=== PATIENT | female | born 1985 | race African-American/Black ===

== ENCOUNTER 2018-06-07 15:09 | Emergency (ER) | payer SELFPAY ==
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
[2018-06-07 16:50] LABS: CHLORIDE,CL 103 mmol/L (98-107); SODIUM,NA 143 mmol/L (136-145)
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
== END 2018-06-07 18:05 | disposition home or self-care (01) ==
LOC: MW.ED 15:09
DX: S32.039A Unspecified fracture of third lumbar vertebra, initial encounter for closed fracture (principal); F17.210 Nicotine dependence, cigarettes, uncomplicated; R45.6 Violent behavior; Y04.0XXA Assault by unarmed brawl or fight, initial encounter
CPT/HCPCS: 36415; 72100; 72100-26; 80053; 81001; 81025; 85025; 99283; 99284-25

== ENCOUNTER 2018-12-30 09:32 | Emergency (ER) | payer OTHER ==
--- NOTE | 2018-12-30 09:42 | EDM.PDOC ---
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 She states she is 2 weeks late on her period and has never missed a period in her whole life. Patient has had some and vomiting is tolerating fluids. Patient has taken several home tests that have all been negative. She denies any fevers, chills or diarrhea. Review of systems: As per history of present illness and below otherwise all systems reviewed and negative. Past medical history: As per history of present illness and as reviewed below otherwise noncontributory. Surgical history: As per history of present illness and as reviewed below otherwise noncontributory. Social history: No reported history of drug or alcohol abuse. Family history: As per history of present illness and as reviewed below otherwise noncontributory. Physical exam: General: Well developed, well nourished in NAD HEENT: Atraumatic, normocephalic, pupils reactive, negative for conjunctival pallor or scleral icterus, mucous membranes moist, throat clear, neck supple, nontender, trachea midline. Lungs: Clear to auscultation, breath sounds equal bilaterally, chest nontender. Heart: S1S2, regular, negative for clicks, rubs, or JVD. Abdomen: NABS, Soft, nondistended, nontender. Negative for masses or hepatosplenomegaly. Negative for costovertebral tenderness. Pelvis: Stable nontender. Genitourinary: Deferred. Rectal: Deferred. Extremities: Atraumatic, negative for cords or calf pain. Neurovascular unremarkable. Neuro: Awake, alert, oriented. Cranial nerves II through XII unremarkable. Cerebellum unremarkable. Motor and sensory unremarkable throughout. Exam nonfocal. Skin:warm and dry Diagnostics: CBC, chemistry, lipase, UA, hCG Therapeutics: Nonenone ED Course: Stable Impression: UTI Prescriptions: Bactrim DS Plan: Take meds as directed, follow up with your primary care physician, return to ER if symptoms worsen or change. Definitive disposition and diagnosis as appropriate pending reevaluation and review of above. Abdominal Pain Score (Numeric/FACES): 4 - Related Data Allergies Allergy/AdvReac Type Severity Reaction Status Date / Time No Known Allergies Allergy Verified 12/30/18 09:41 Home Meds: Home Meds Sulfamethoxazole/Trimethoprim [Bactrim Ds Tablet] 1 each PO BID #20 tablet 12/30 [Rx] Past Medical History - Past Health History Medical/Surgical History: Denies Medical/Surgical History - Infectious Disease History Infectious Disease History: Reports: Chicken Pox Social & Family History - Family History Family Medical History: Noncontributory - Caffeine Use Caffeine Use: Reports: Soda ED ROS GENERAL - Review of Systems Review Of Systems: See Below ED EXAM, RENAL/ - Physical Exam Exam: See Below Course - Vital Signs Last Recorded V/S: Last Vital Signs Temp 97.1 F 12/30/18 09:41 Pulse 90 12/30/18 09:41 Resp 15 12/30/18 09:41 BP 136/96 H 12/30/18 09:41 Pulse Ox 97 12/30/18 09:41 - Orders/Labs/Meds Labs: Laboratory Tests 12/30/18 12/30/18 12/30/18 Range/Units 09:30 09:30 09:55 WBC 6.08 (4.0-11.0) K/uL RBC 4.42 (4.30-5.90) M/uL Hgb 14.3 (12.0-16.0) g/dL Hct 43.2 (36.0-46.0) % MCV 97.7 (80.0-98.0) fL MCH 32.4 H (27.0-32.0) pg MCHC 33.1 (31.0-37.0) g/dL RDW Std Deviation 47.7 (28.0-62.0) fl RDW Coeff of Efraín 13 (11.0-15.0) % Plt Count 186 (150-400) K/uL MPV 11.10 (7.40-12.00) fL Neut % (Auto) 64.1 (48.0-80.0) % Lymph % (Auto) 26.8 (16.0-40.0) % [place] % (Auto) 7.9 (0.0-15.0) % Eos % (Auto) 0.7 (0.0-7.0) % Baso % (Auto) 0.5 (0.0-1.5) % Neut # (Auto) 3.9 (1.4-5.7) K/uL Lymph # (Auto) 1.6 (0.6-2.4) K/uL [place] # (Auto) 0.5 (0.0-0.8) K/uL Eos # (Auto) 0.0 (0.0-0.7) K/uL Baso # (Auto) 0.0 (0.0-0.1) K/uL Nucleated RBC % 0.0 /100WBC Nucleated RBCs # 0 K/uL Sodium (136-145) mmol/L Potassium (3.5-5.1) mmol/L Chloride (98-107) mmol/L Carbon Dioxide (21.0-32.0) mmol/L BUN (7.0-18.0) mg/dL Creatinine (0.6-1.0) mg/dL Est Cr Clr Drug Dosing mL/min Estimated GFR (MDRD) ml/min Glucose (74-106) mg/dL Calcium (8.5-10.1) mg/dL Total Bilirubin (0.2-1.0) mg/dL AST (15-37) IU/L ALT (14-63) IU/L Alkaline Phosphatase (46-116) U/L Total Protein (6.4-8.2) g/dL Albumin (3.4-5.0) g/dL Globulin (2.6-4.0) g/dL Albumin/Globulin Ratio (0.9-1.6) Lipase (73-393) U/L Urine Color YELLOW Urine Appearance SLT CLOUDY Urine pH 7.5 (5.0-8.0) Ur Specific [place] 1.015 (1.001-1.035) Urine Protein NEGATIVE (NEGATIVE) mg/dL Urine Glucose (UA) NEGATIVE (NEGATIVE) mg/dL Urine Ketones NEGATIVE (NEGATIVE) mg/dL Urine Occult Blood NEGATIVE (NEGATIVE) Urine Nitrite NEGATIVE (NEGATIVE) Urine Bilirubin NEGATIVE (NEGATIVE) Urine Urobilinogen 0.2 (<2.0) EU/dL Ur Leukocyte Esterase SMALL H (NEGATIVE) Urine RBC 0-1 (0-2/HPF) Urine WBC 10-15 (0-5/HPF) Ur Epithelial Cells MODERATE (NONE-FEW) Urine Bacteria FEW (NEGATIVE) Hyaline Casts 0-1 (0-2/LPF) Urine Mucus MODERATE (NONE-MOD) Urine HCG, Qual NEGATIVE (NEGATIVE) 12/30/18 Range/Units 09:55 WBC (4.0-11.0) K/uL RBC (4.30-5.90) M/uL Hgb (12.0-16.0) g/dL Hct (36.0-46.0) % MCV (80.0-98.0) fL MCH (27.0-32.0) pg MCHC (31.0-37.0) g/dL RDW Std Deviation (28.0-62.0) fl RDW Coeff of Efraín (11.0-15.0) % Plt Count (150-400) K/uL MPV (7.40-12.00) fL Neut % (Auto) (48.0-80.0) % Lymph % (Auto) (16.0-40.0) % [place] % (Auto) (0.0-15.0) % Eos % (Auto) (0.0-7.0) % Baso % (Auto) (0.0-1.5) % Neut # (Auto) (1.4-5.7) K/uL Lymph # (Auto) (0.6-2.4) K/uL [place] # (Auto) (0.0-0.8) K/uL Eos # (Auto) (0.0-0.7) K/uL Baso # (Auto) (0.0-0.1) K/uL Nucleated RBC % /100WBC Nucleated RBCs # K/uL Sodium 144 (136-145) mmol/L Potassium 4.0 (3.5-5.1) mmol/L Chloride 108 H (98-107) mmol/L Carbon Dioxide 23.8 (21.0-32.0) mmol/L BUN 6 L (7.0-18.0) mg/dL Creatinine 0.8 (0.6-1.0) mg/dL Est Cr Clr Drug Dosing 92.76 mL/min Estimated GFR (MDRD) > 60.0 ml/min Glucose 75 (74-106) mg/dL Calcium 8.5 (8.5-10.1) mg/dL Total Bilirubin 0.5 (0.2-1.0) mg/dL AST 12 L (15-37) IU/L ALT 21 (14-63) IU/L Alkaline Phosphatase 43 L (46-116) U/L Total Protein 7.3 (6.4-8.2) g/dL Albumin 3.9 (3.4-5.0) g/dL Globulin 3.4 (2.6-4.0) g/dL Albumin/Globulin Ratio 1.1 (0.9-1.6) Lipase 106 (73-393) U/L Urine Color Urine Appearance Urine pH (5.0-8.0) Ur Specific [place] (1.001-1.035) Urine Protein (NEGATIVE) mg/dL Urine Glucose (UA) (NEGATIVE) mg/dL Urine Ketones (NEGATIVE) mg/dL Urine Occult Blood (NEGATIVE) Urine Nitrite (NEGATIVE) Urine Bilirubin (NEGATIVE) Urine Urobilinogen (<2.0) EU/dL Ur Leukocyte Esterase (NEGATIVE) Urine RBC (0-2/HPF) Urine WBC (0-5/HPF) Ur Epithelial Cells (NONE-FEW) Urine Bacteria (NEGATIVE) Hyaline Casts (0-2/LPF) Urine Mucus (NONE-MOD) Urine HCG, Qual (NEGATIVE) Departure - Departure Time of Disposition: 11:07 Disposition: Home, Self-Care 01 Condition: Good Clinical Impression: UTI (urinary tract infection) Qualifiers: Urinary tract infection type: site unspecified Hematuria presence: without hematuria Qualified Code(s): N39.0 - Urinary tract infection, site not specified - Discharge Information *PRESCRIPTION DRUG MONITORING PROGRAM REVIEWED*: Not Applicable *COPY OF PRESCRIPTION DRUG MONITORING REPORT IN PATIENT JAZZMINE: Not Applicable Prescriptions: Sulfamethoxazole/Trimethoprim [Bactrim Ds Tablet] 1 each PO BID #20 tablet Referrals: PCP,None [Primary Care Provider] - Forms: ED Department Discharge Additional Instructions: The following information is given to patients seen in the emergency department who are being discharged to home. This information is to outline your options for follow-up care. We provide all patients seen in our emergency department with a follow-up referral. The need for follow-up, as well as the timing and circumstances, are variable depending upon the specifics of your emergency department visit. If you don't have a primary care physician on staff, we will provide you with a referral. We always advise you to contact your personal physician following an emergency department visit to inform them of the circumstance of the visit and for follow-up with them and/or the need for any referrals to a consulting specialist. The emergency department will also refer you to a specialist when appropriate. This referral assures that you have the opportunity for follow-up care with a specialist. All of these measure are taken in an effort to provide you with optimal care, which includes your follow-up. Under all circumstances we always encourage you to contact your private physician who remains a resource for coordinating your care. When calling for follow-up care, please make the office aware that this follow-up is from your recent emergency room visit. If for any reason you are refused follow-up, please contact the [facility] Emergency Department at and asked to speak to the emergency department charge nurse. Take meds as directed, follow up with your primary care physician, return to ER if symptoms worsen or change. [facility] Primary Care [address] [place] [id number]
[2018-12-30 10:48] LABS: BLOOD UREA NITROGEN,BUN 6 mg/dL (7.0-18.0); CARBON DIOXIDE,CO2 23.8 mmol/L (21.0-32.0); CHLORIDE,CL 108 mmol/L (98-107); GLUCOSE RANDOM 75 mg/dL (74-106); LIPASE 106 U/L (73-393); SODIUM,NA 144 mmol/L (136-145)
== END 2018-12-30 11:35 | disposition home or self-care (01) ==
LOC: MW.ED 09:32
DX: N39.0 Urinary tract infection, site not specified (principal)
CPT/HCPCS: 36415; 80053; 81001; 81025; 83690; 85025; 99283; 99284

== ENCOUNTER 2019-03-01 17:09 | Observation (INO) | payer OTHER ==
[2019-03-01] MEDS ORDERED: Ondansetron 4 MG/2 ML SDV IVPUSH ONE (19:03)
[2019-03-01] MEDS ORDERED: Ketorolac 30 MG/ML SDV IVPUSH ONE (19:03)
[2019-03-01] MEDS ORDERED: Sodium Chloride 0.9% 1,000 ML IV ONE (19:03)
[2019-03-01 19:52] LABS: BLOOD UREA NITROGEN,BUN 12 mg/dL (7.0-18.0); CARBON DIOXIDE,CO2 26.5 mmol/L (21.0-32.0); CHLORIDE,CL 100 mmol/L (98-107); GLUCOSE RANDOM 81 mg/dL (74-106); LIPASE 186 U/L (73-393); SODIUM,NA 138 mmol/L (136-145)
[2019-03-01] MEDS ORDERED: Iopamidol 755 Mg/ML 100 ML Bottle IVPUSH STA (19:56)
--- NOTE | 2019-03-01 20:37 | CT ---
Indication: Right lower quadrant abdominal pain Technique: Contrast enhanced axial CT imaging through the abdomen and pelvis. 100 mL Isovue 370 contrast agent was administered intravenously. Sagittal and coronal reconstructions are provided. Comparison: None Findings: There is a multiloculated cystic lesion to the right of and posterior to the uterus measuring up to 11.4 x 6.0 x 6.2 cm, likely relating to the right ovary. The left ovary is mildly enlarged, measuring up to 6 cm craniocaudally, with an adjacent elongated cystic focus suggesting hydrosalpinx. There is mild inflammatory stranding in the pelvis. The uterus is unremarkable. There is no significant abnormality of the liver, gallbladder, spleen, pancreas, adrenal glands, and kidneys. The portal veins pain. There is normal caliber of the abdominal aorta. There is no abdominal lymphadenopathy. The stomach and duodenum are unremarkable. There are no abnormally dilated small bowel loops. The appendix is noninflamed. There is no colonic wall thickening. The visualized osseous structures are unremarkable. The included lung bases are clear. Impression: 1. Multiloculated right adnexal cystic lesion measuring up to 11 cm and mild pelvic inflammatory strandy. Differential considerations hydrosalpinx with pelvic abscess, multiloculated ovarian neoplasm, or less likely ovarian torsion. 2. Mild enlargement of the left ovary with adjacent prominent tubular structure suggesting hydrosalpinx. 3. Further evaluation is recommended with pelvic ultrasound. Please note that all CT scans at this facility use dose modulation, iterative reconstruction, and/or weight-based dosing when appropriate to reduce radiation dose to as low as reasonably achievable. Dictated by Maral Cook MD @ Mar 01 2019 8:23PM Signed by Dr. Maral Cook @ Mar 01 2019 8:36PM
[2019-03-01] MEDS ORDERED: Morphine 2 MG/ML Syringe IVPUSH ONE (20:47)
--- NOTE | 2019-03-01 21:23 | EDM.PDOC ---
<Chris Ballard - Last Filed: 03/02/19 00:34> ED HPI GENERAL MEDICAL PROBLEM - General Chief Complaint: Abdominal Pain Stated Complaint: ABDOMINAL PAIN Time Seen by Provider: 03/01/19 18:58 - Related Data Allergies Allergy/AdvReac Type Severity Reaction Status Date / Time No Known Allergies Allergy Verified 03/01/19 17:59 Home Meds: Home Meds Sulfamethoxazole/Trimethoprim [Bactrim Ds Tablet] 1 each PO BID #20 tablet 12/30 [Rx] ED ROS GENERAL - Review of Systems Review Of Systems: See Below ED EXAM, GENERAL - Physical Exam Exam: See Below Course - Vital Signs Last Recorded V/S: Last Vital Signs Temp 98.1 F 03/02/19 07:33 Pulse 67 03/02/19 07:33 Resp 17 03/02/19 07:33 BP 116/72 03/02/19 07:33 Pulse Ox 98 03/02/19 07:33 - Orders/Labs/Meds Orders: Active Orders 24 hr Category Date Time Status CHLAMYDIA AND GONORRHEA BY TMA Stat Lab 03/01/19 22:08 Received CULTURE GENITAL [RM] Stat Lab 03/01/19 22:05 Received Medication Orders Hydromorphone HCl (Dilaudid) 1 mg IVPUSH Q3H PRN PRN Reason: Pain (severe 7-10) Last Admin: 03/02/19 05:37 Dose: 1 mg Metronidazole (Metronidazole) 500 mg PO Q12HR DEN Last Admin: 03/02/19 08:24 Dose: 500 mg Morphine Sulfate (Morphine) 2 mg IVPUSH Q4H PRN PRN Reason: Pain (moderate 4-6) Last Admin: 03/02/19 08:13 Dose: 2 mg Ondansetron HCl (Zofran) 4 mg IVPUSH Q4H PRN PRN Reason: Nausea Last Admin: 03/02/19 08:11 Dose: 4 mg Labs: Laboratory Tests 03/01/19 03/01/19 03/01/19 Range/Units 18:01 18:34 19:24 WBC 7.94 (4.0-11.0) K/uL RBC 4.43 (4.30-5.90) M/uL Hgb 14.4 (12.0-16.0) g/dL Hct 43.2 (36.0-46.0) % MCV 97.5 (80.0-98.0) fL MCH 32.5 H (27.0-32.0) pg MCHC 33.3 (31.0-37.0) g/dL RDW Std Deviation 47.9 (28.0-62.0) fl RDW Coeff of Efraín 13 (11.0-15.0) % Plt Count 258 (150-400) K/uL MPV 10.30 (7.40-12.00) fL Add Manual Diff YES Neutrophils % (Manual) 69 (48.0-80.0) % Lymphocytes % (Manual) 27 (16.0-40.0) % Monocytes % (Manual) 4 (0.0-15.0) % Nucleated RBC % 0.0 /100WBC Absolute Seg Neuts 5.5 (1.4-5.7) Lymphocytes # (Manual) 2.1 (0.6-2.4) Monocytes # (Manual) 0.3 (0.0-0.8) Nucleated RBCs # 0 K/uL Sodium (136-145) mmol/L Potassium (3.5-5.1) mmol/L Chloride (98-107) mmol/L Carbon Dioxide (21.0-32.0) mmol/L BUN (7.0-18.0) mg/dL Creatinine (0.6-1.0) mg/dL Est Cr Clr Drug Dosing mL/min Estimated GFR (MDRD) ml/min Glucose (74-106) mg/dL Calcium (8.5-10.1) mg/dL Total Bilirubin (0.2-1.0) mg/dL AST (15-37) IU/L ALT (14-63) IU/L Alkaline Phosphatase (46-116) U/L Total Protein (6.4-8.2) g/dL Albumin (3.4-5.0) g/dL Globulin (2.6-4.0) g/dL Albumin/Globulin Ratio (0.9-1.6) Lipase (73-393) U/L CA 125 Antigen (0.0-35.0) U/ML Urine Color YELLOW Urine Appearance HAZY Urine pH 8.0 (5.0-8.0) Ur Specific [place] 1.020 (1.001-1.035) Urine Protein NEGATIVE (NEGATIVE) mg/dL Urine Glucose (UA) NEGATIVE (NEGATIVE) mg/dL Urine Ketones NEGATIVE (NEGATIVE) mg/dL Urine Occult Blood NEGATIVE (NEGATIVE) Urine Nitrite NEGATIVE (NEGATIVE) Urine Bilirubin NEGATIVE (NEGATIVE) Urine Urobilinogen 1.0 (<2.0) EU/dL Ur Leukocyte Esterase NEGATIVE (NEGATIVE) Urine HCG, Qual NEGATIVE (NEGATIVE) Jackelyn species DNA (NEGATIVE) Gardnerella DNA Probe (NEGATIVE) Trichomonas DNA Probe (NEGATIVE) 03/01/19 03/01/19 03/01/19 Range/Units 19:24 19:24 22:05 WBC (4.0-11.0) K/uL RBC (4.30-5.90) M/uL Hgb (12.0-16.0) g/dL Hct (36.0-46.0) % MCV (80.0-98.0) fL MCH (27.0-32.0) pg MCHC (31.0-37.0) g/dL RDW Std Deviation (28.0-62.0) fl RDW Coeff of Efraín (11.0-15.0) % Plt Count (150-400) K/uL MPV (7.40-12.00) fL Add Manual Diff Neutrophils % (Manual) (48.0-80.0) % Lymphocytes % (Manual) (16.0-40.0) % Monocytes % (Manual) (0.0-15.0) % Nucleated RBC % /100WBC Absolute Seg Neuts (1.4-5.7) Lymphocytes # (Manual) (0.6-2.4) Monocytes # (Manual) (0.0-0.8) Nucleated RBCs # K/uL Sodium 138 (136-145) mmol/L Potassium 4.0 (3.5-5.1) mmol/L Chloride 100 (98-107) mmol/L Carbon Dioxide 26.5 (21.0-32.0) mmol/L BUN 12 (7.0-18.0) mg/dL Creatinine 0.8 (0.6-1.0) mg/dL Est Cr Clr Drug Dosing 92.76 mL/min Estimated GFR (MDRD) > 60.0 ml/min Glucose 81 (74-106) mg/dL Calcium 9.2 (8.5-10.1) mg/dL Total Bilirubin 0.3 (0.2-1.0) mg/dL AST 18 (15-37) IU/L ALT 22 (14-63) IU/L Alkaline Phosphatase 71 (46-116) U/L Total Protein 8.8 H (6.4-8.2) g/dL Albumin 3.9 (3.4-5.0) g/dL Globulin 4.9 H (2.6-4.0) g/dL Albumin/Globulin Ratio 0.8 L (0.9-1.6) Lipase 186 (73-393) U/L CA 125 Antigen 452.5 H (0.0-35.0) U/ML Urine Color Urine Appearance Urine pH (5.0-8.0) Ur Specific [place] (1.001-1.035) Urine Protein (NEGATIVE) mg/dL Urine Glucose (UA) (NEGATIVE) mg/dL Urine Ketones (NEGATIVE) mg/dL Urine Occult Blood (NEGATIVE) Urine Nitrite (NEGATIVE) Urine Bilirubin (NEGATIVE) Urine Urobilinogen (<2.0) EU/dL Ur Leukocyte Esterase (NEGATIVE) Urine HCG, Qual (NEGATIVE) Jackelyn species DNA NEGATIVE (NEGATIVE) Gardnerella DNA Probe POSITIVE H (NEGATIVE) Trichomonas DNA Probe NEGATIVE (NEGATIVE) Meds: Medications Generic Name Dose Route Start Last Admin Trade Name Freq PRN Reason Stop Dose Admin Hydromorphone HCl 1 mg 03/02/19 00:52 03/02/19 05:37 Dilaudid IVPUSH 1 mg Q3H PRN Administration Pain (severe 7-10) Metronidazole 500 mg 03/02/19 09:00 03/02/19 08:24 Metronidazole PO 500 mg Q12HR DEN Administration Morphine Sulfate 2 mg 03/02/19 01:00 03/02/19 08:13 Morphine IVPUSH 2 mg Q4H PRN Administration Pain (moderate 4-6) Ondansetron HCl 4 mg 03/02/19 07:49 03/02/19 08:11 Zofran IVPUSH 4 mg Q4H PRN Administration Nausea Discontinued Medications Generic Name Dose Route Start Last Admin Trade Name Freq PRN Reason Stop Dose Admin Hydromorphone HCl 0.5 - 1 mg 03/01/19 23:44 03/02/19 00:46 Dilaudid IVPUSH 1 mg Q1H PRN Administration Pain Hydromorphone HCl Confirm 03/01/19 23:47 03/02/19 07:46 Dilaudid Administered 03/01/19 23:48 Not Given Dose 1 mg .ROUTE .STK-MED ONE Sodium Chloride 1,000 mls @ 999 mls/hr 03/01/19 19:03 03/01/19 19:22 Normal Saline IV 03/01/19 20:03 999 mls/hr BOLUS ONE Administration Iopamidol 100 ml 03/01/19 19:56 03/01/19 20:10 Isovue-370 (76%) IVPUSH 03/01/19 19:57 100 ml ONETIME STA Administration Ketorolac Tromethamine 30 mg 03/01/19 19:03 03/01/19 19:22 Toradol IVPUSH 03/01/19 19:04 30 mg ONETIME ONE Administration Metronidazole 500 mg 03/02/19 00:32 03/02/19 00:46 Metronidazole PO 03/02/19 00:33 500 mg ONETIME ONE Administration Morphine Sulfate 2 mg 03/01/19 20:47 03/01/19 20:54 Morphine IVPUSH 03/01/19 20:48 2 mg ONETIME ONE Administration Ondansetron HCl 4 mg 03/01/19 19:03 03/01/19 19:22 Zofran IVPUSH 03/01/19 19:04 4 mg ONETIME ONE Administration Trazodone HCl 25 mg 03/02/19 02:18 03/02/19 02:38 Trazodone PO 03/02/19 02:19 25 mg ONETIME ONE Administration Trazodone HCl Confirm 03/02/19 02:26 03/02/19 07:46 Trazodone Administered 03/02/19 02:27 Not Given Dose 50 mg .ROUTE .STK-MED ONE - Re-Assessments/Exams Free Text/Narrative Re-Assessment/Exam: 03/02/19 00:35 Emergency Medicine Physician Handoff Note Verbal report from ZAK Cutler at 9 PM, 04/28/2019. Summary: 33-year-old female presents with approximately one week of right lower quadrant pain. CT abdomen pelvis concerning for large mass on right ovary. Transvaginal ultrasound pending. Pelvic exam with CMT. WBC 7.9, HB 14.4, sodium 138, potassium 4.0, total bilirubin 0.3, AST 18, ALT 22 , alkaline phosphatase 71, lipase 186. UA - negative nitrate, negative leukocyte esterase, hCG negative. CT abdomen/pelvis: 1. Multiloculated right adnexal cystic lesion measuring up to 11 cm and mild pelvic inflammatory strandy. Differential considerations hydrosalpinx with pelvic abscess, multiloculated ovarian neoplasm, or less likely ovarian torsion. 2. Mild enlargement of the left ovary with adjacent prominent tubular structure suggesting hydrosalpinx. 3. Further evaluation is recommended with pelvic ultrasound. US TV: Prominent enlargement of the right ovary with multiple anechoic or irregularly- shaped regions within it, measuring 10.6 x 5.3 by 5.3 centimeters. This is worrisome for an ovarian malignancy. Irregularly-shaped left paraovarian mass extending medially and posteriorly from the normal-appearing left ovary, appearing to surround a left hydrosalpinx. The left ovary itself appears to be normal in appearance. Retroverted uterus with a posterior fundal fibroid measuring up to 2.9 centimeters in diameter. No sign of free fluid. Vitals and completed studies were jointly reviewed, these are notable for: Pending: Anticipated disposition: Evaluation: I independently reviewed the prior provider's chart, nursing and triage note(s) , vitals - and when available - labs, EKGs, and imaging studies. Discuss case with Dr. Almaraz, hospitalization for pain control (if unable to obtain adequate pain control in ED) recommended, requested CA 125. This was added on and is pending. Patient given 1 mg hydromorphone, patient with significant ongoing pain, patient requested hospitalization with IMAGE SCIENTIST consultation in the morning. 500 mg Flagyl given for BV. Patient admitted to Dr. Robison. Impression: ovarian mass, bacterial vaginosis. Departure - Departure Time of Disposition: 00:35 Disposition: Admitted As Inpatient 65 Clinical Impression: Ovarian mass - Discharge Information Sepsis Event Note - Focused Exam Date Exam was Performed: 03/02/19 Time Exam was Performed: 00:34 - My Orders Last 24 Hours: My Active Orders 03/01/19 22:05 CULTURE GENITAL [RM] Stat 03/01/19 22:08 CHLAMYDIA AND GONORRHEA BY TMA Stat - Assessment/Plan Last 24 Hours: My Active Orders 03/01/19 22:05 CULTURE GENITAL [RM] Stat 03/01/19 22:08 CHLAMYDIA AND GONORRHEA BY TMA Stat <Gabby,Anna - Last Filed: 03/02/19 10:03> ED HPI GENERAL MEDICAL PROBLEM - General Source of Information: Reports: Patient History Limitations: Reports: No Limitations - History of Present Illness INITIAL COMMENTS - FREE TEXT/NARRATIVE: HISTORY AND PHYSICAL: History of present illness: Patient is a 33-year-old female who presents to the ED today with concern of right lower quadrant pain over the last week. Patient states that the pain feels similar to when she had an ovarian cyst rupture in the past. Patient states that the pain has been dull until today it has worsened and been more sharp on the right lower side. Patient states she has not taken anything for her symptoms. Patient denies fever, chills, chest pain, shortness of breath, or cough. Denies headache, neck stiff ness, change in vision, syncope, or near syncope. Denies nausea, vomiting, diarrhea, constipation, or dysuria. Has not noted any blood in urine or stool. Patient has been eating and drinking appropriately. Review of systems: As per history of present illness and below otherwise all systems reviewed and negative. Past medical history: As per history of present illness and as reviewed below otherwise noncontributory. Surgical history: As per history of present illness and as reviewed below otherwise noncontributory. Social history: See social history for further information Family history: As per history of present illness and as reviewed below otherwise noncontributory. Physical exam: General: Patient is alert, oriented, and in no acute distress. Patient laying comfortably on exam table. HEENT: Atraumatic, normocephalic, pupils equal and reactive bilaterally, negative for conjunctival pallor or scleral icterus, mucous membranes moist, TMs normal bilaterally, throat clear, neck supple, nontender, trachea midline. No drooling or trismus noted. No meningeal signs. No hot potato voice noted. Lungs: Clear to auscultation, breath sounds equal bilaterally, chest nontender. Heart: S1S2, regular rate and rhythm without overt murmur Abdomen: Soft, nondistended. Moderate pain to palpation of the RLQ without guarding. Negative rebound. Negative for masses or hepatosplenomegaly. Negative for costovertebral tenderness. Pelvis: Stable nontender. Genitourinary: External genitalia is grossly unremarkable. There is a moderate amount of white discharge in the vaginal vault. Positive cervical motion tenderness. Uterus is approximately 6 week in size with pain with palpation to the right. Rectal: Deferred. Skin: Intact, warm, dry. No lesions or rashes noted. Extremities: Atraumatic, negative for cords or calf pain. Neurovascular unremarkable. Neuro: Awake, alert, oriented. Cranial nerves II through XII unremarkable. Cerebellum unremarkable. Motor and sensory unremarkable throughout. Exam nonfocal. Notes: Dr. Ballard has assumed care of patient and will follow remaining diagnostics and disposition. See his note for further treatment and disposition. Diagnostics: CBC, CMP, UA, urine hCG, lipase, gonorrhea chlamydia, affirm, vaginal culture, abdominal pelvic CT, transvaginal ultrasound Therapeutics: NS, Toradol, Zofran, Morphine Prescription: Impression: Right sided pelvic pain Plan: Definitive disposition and diagnosis as appropriate pending reevaluation and review of above. right abd Pain Score (Numeric/FACES): 10 Past Medical History - Past Health History Medical/Surgical History: Denies Medical/Surgical History IMAGE SCIENTIST History: Reports: - Infectious Disease History Infectious Disease History: Reports: Chicken Pox Social & Family History - Family History Family Medical History: Noncontributory - Tobacco Use Smoking Status *Q: Current Every Day Smoker Years of Tobacco use: 20 Packs/Tins Daily: 0.5 - Caffeine Use Caffeine Use: Reports: Soda - Recreational Drug Use Recreational Drug Use: No ED ROS GENERAL - Review of Systems Review Of Systems: Comprehensive ROS is negative, except as noted in HPI. ED EXAM, GENERAL - Physical Exam Exam: See Below (see dictation) Sepsis Event Note - Evaluation Sepsis Screening Result: No Definite Risk - Focused Exam Date Exam was Performed: 03/02/19 Time Exam was Performed: 10:00
--- NOTE | 2019-03-01 22:59 | US ---
INDICATION: Ovarian mass on CT and this evening. Right lower quadrant abdominal pain. COMPARISON: CT of the pelvis from today. FINDINGS: Transvaginal ultrasound examination of the female pelvis was performed. The uterus is retroverted and is normal in size. It measures 10.0 x 5.0 x 3.8 cm. There is a posterior fundal fibroid measuring 2.5 x 2.9 x 2.7 centimeters. The endometrial lining is normal in thickness at 4 mm. There is prominent enlargement of the right ovary with multiple anechoic, irregularly-shaped regions within it, measuring 10.6 x 5.3 by 5.3 centimeters. There is relatively little color Doppler flow in or around this mass, although there are some large vessels penetrating into the mass. The findings are nonspecific, and certainly could include ovarian malignancy. The left ovary appears to be normal in size and shape, measuring 1.9 x 2.5 x 1.6 centimeters. There appears to be normal color Doppler flow in the left ovary. There is a mildly hyperechoic mass extending inferiorly and medially from the left ovary, with central tubular fluid, corresponding to the appearance on CT. This appears to be a paraovarian mass surrounding a left hydrosalpinx. There is no sign of free fluid in the pelvis. IMPRESSION: Prominent enlargement of the right ovary with multiple anechoic or irregularly-shaped regions within it, measuring 10.6 x 5.3 by 5.3 centimeters. This is worrisome for an ovarian malignancy. Irregularly-shaped left paraovarian mass extending medially and posteriorly from the normal-appearing left ovary, appearing to surround a left hydrosalpinx. The left ovary itself appears to be normal in appearance. Retroverted uterus with a posterior fundal fibroid measuring up to 2.9 centimeters in diameter. No sign of free fluid. Dictated by Van Forbes MD @ Mar 01 2019 10:46PM Signed by Dr. Van Forbes @ Mar 01 2019 10:57PM
[2019-03-01] MEDS ORDERED: HYDROmorphone 1 MG/ML Syringe ONE (23:47)
[2019-03-01] MEDS: HYDROmorphone 1 MG/ML Syringe IVPUSH PRN (23:51)
[2019-03-02] MEDS ORDERED: metroNIDAZOLE 250 MG Tab PO ONE (00:32)
[2019-03-02] MEDS: HYDROmorphone 1 MG/ML Syringe IVPUSH PRN ×3 (00:46→12:15)
[2019-03-02] MEDS ORDERED: Morphine 2 MG/ML Syringe IVPUSH PRN (01:00)
[2019-03-02] MEDS ORDERED: traZODone 50 MG Tab PO ONE (02:18)
[2019-03-02] MEDS ORDERED: traZODone 50 MG Tab ONE (02:26)
[2019-03-02] MEDS ORDERED: Ondansetron 4 MG/2 ML SDV IVPUSH PRN (07:49)
[2019-03-02] MEDS ORDERED: metroNIDAZOLE 250 MG Tab PO SCH (09:00)
[2019-03-02] MEDS ORDERED: LORazepam 1 MG Tab PO ONE (13:04)
--- NOTE | 2019-03-02 13:44 | PCM.HP.2 ---
H&P History of Present Illness - General Date of Service: 03/02/19 Admit Problem/Dx: Admission Diagnosis/Problem Admission Diagnosis/Problem Ovarian dysfunction Source of Information: Patient History Limitations: Reports: No Limitations - History of Present Illness Initial Comments - Free Text/Narative: Patient is a 33-year-old female presenting with worsening abdominal pain x2 to 3 days. States the pain in her right lower abdomen is similar to her previous history of ovarian cysts (patient endorses not knowing the nature of her ovarian pathology unsure whether it was torsion or infection). ED course: CT abdomen pelvis: Multiloculated cystic lesion in the right posterior to the uterus most likely right ovary left ovary is mildly enlarged. Transvaginal ultrasound: Multiple anechoic irregularly-shaped regions within the right ovary; concerns for ovarian malignancy present. Possibly mass extending inferiorly and medially from left ovary with hydrosalpinx. Bedside; patient endorsing increasing pain; given Dilaudid and morphine. Dr. Almaraz of [employer] was consulted right abd Pain Score (Numeric/FACES): 10 - Related Data Allergies/Adverse Reactions: Allergies Allergy/AdvReac Type Severity Reaction Status Date / Time No Known Allergies Allergy Verified 03/01/19 17:59 Home Medications: Home Meds Hydrocodone/Acetaminophen [[place] 5-325 Tablet] 1 each PO QID 2 Days #10 tablet 03/02/19 [Rx] metroNIDAZOLE 500 mg PO Q12HR tablet 03/02/19 [Rx] Past Medical History - Past Health History Medical/Surgical History: Denies Medical/Surgical History [employer] History: Reports: Psychiatric History: Reports: Anxiety - Infectious Disease History Infectious Disease History: Reports: Chicken Pox Social & Family History - Family History Family Medical History: Noncontributory - Tobacco Use Smoking Status *Q: Current Every Day Smoker Years of Tobacco use: 20 Packs/Tins Daily: 0.5 Second Hand Smoke Exposure: No - Caffeine Use Caffeine Use: Reports: Soda - Recreational Drug Use Recreational Drug Use: No H&P Review of Systems - Review of Systems: Review Of Systems: See Below General: Denies: Fever, Chills, Weakness, Fatigue HEENT: Reports: No Symptoms Pulmonary: Reports: No Symptoms Cardiovascular: Reports: No Symptoms Gastrointestinal: Reports: Abdominal Pain. Denies: Constipation, Diarrhea Genitourinary: Reports: Pain, Discharge. Denies: Dysuria, Frequency, Burning Musculoskeletal: Reports: No Symptoms Skin: Reports: No Symptoms Psychiatric: Reports: Anxiety Neurological: Reports: Headache Exam - Exam Exam: See Below - Vital Signs Vital Signs: Last Vital Signs Temp 98.6 F 03/02/19 11:00 Pulse 71 03/02/19 11:00 Resp 20 03/02/19 11:00 BP 139/96 H 03/02/19 11:00 Pulse Ox 98 03/02/19 11:00 Weight: 160 lb 14.999 oz - Exam General: Alert, Oriented HEENT: EOMI Neck: Supple, Trachea Midline Lungs: Clear to Auscultation, Normal Respiratory Effort Cardiovascular: Regular Rate, Regular Rhythm GI/Abdominal Exam: Soft, Non-Tender (Female) Exam: Other (RLQ and auprapubic tenderness ) Skin: Warm Neuro Extensive - Mental Status: Alert, Oriented x3 Psychiatric: Alert, Anxious - Patient Data Lab Results Last 24 hrs: Laboratory Results - last 24 hr 03/01/19 03/01/19 03/01/19 Range/Units 18:01 18:34 19:24 WBC 7.94 (4.0-11.0) K/uL RBC 4.43 (4.30-5.90) M/uL Hgb 14.4 (12.0-16.0) g/dL Hct 43.2 (36.0-46.0) % MCV 97.5 (80.0-98.0) fL MCH 32.5 H (27.0-32.0) pg MCHC 33.3 (31.0-37.0) g/dL RDW Std Deviation 47.9 (28.0-62.0) fl RDW Coeff of Efraín 13 (11.0-15.0) % Plt Count 258 (150-400) K/uL MPV 10.30 (7.40-12.00) fL Add Manual Diff YES Neutrophils % (Manual) 69 (48.0-80.0) % Lymphocytes % (Manual) 27 (16.0-40.0) % Monocytes % (Manual) 4 (0.0-15.0) % Nucleated RBC % 0.0 /100WBC Absolute Seg Neuts 5.5 (1.4-5.7) Lymphocytes # (Manual) 2.1 (0.6-2.4) Monocytes # (Manual) 0.3 (0.0-0.8) Nucleated RBCs # 0 K/uL Sodium (136-145) mmol/L Potassium (3.5-5.1) mmol/L Chloride (98-107) mmol/L Carbon Dioxide (21.0-32.0) mmol/L BUN (7.0-18.0) mg/dL Creatinine (0.6-1.0) mg/dL Est Cr Clr Drug Dosing mL/min Estimated GFR (MDRD) ml/min Glucose (74-106) mg/dL Calcium (8.5-10.1) mg/dL Total Bilirubin (0.2-1.0) mg/dL AST (15-37) IU/L ALT (14-63) IU/L Alkaline Phosphatase (46-116) U/L Total Protein (6.4-8.2) g/dL Albumin (3.4-5.0) g/dL Globulin (2.6-4.0) g/dL Albumin/Globulin Ratio (0.9-1.6) Lipase (73-393) U/L CA 125 Antigen (0.0-35.0) U/ML Urine Color YELLOW Urine Appearance HAZY Urine pH 8.0 (5.0-8.0) Ur Specific [place] 1.020 (1.001-1.035) Urine Protein NEGATIVE (NEGATIVE) mg/dL Urine Glucose (UA) NEGATIVE (NEGATIVE) mg/dL Urine Ketones NEGATIVE (NEGATIVE) mg/dL Urine Occult Blood NEGATIVE (NEGATIVE) Urine Nitrite NEGATIVE (NEGATIVE) Urine Bilirubin NEGATIVE (NEGATIVE) Urine Urobilinogen 1.0 (<2.0) EU/dL Ur Leukocyte Esterase NEGATIVE (NEGATIVE) Urine HCG, Qual NEGATIVE (NEGATIVE) Jackelyn species DNA (NEGATIVE) Gardnerella DNA Probe (NEGATIVE) Trichomonas DNA Probe (NEGATIVE) 03/01/19 03/01/19 03/01/19 Range/Units 19:24 19:24 22:05 WBC (4.0-11.0) K/uL RBC (4.30-5.90) M/uL Hgb (12.0-16.0) g/dL Hct (36.0-46.0) % MCV (80.0-98.0) fL MCH (27.0-32.0) pg MCHC (31.0-37.0) g/dL RDW Std Deviation (28.0-62.0) fl RDW Coeff of Efraín (11.0-15.0) % Plt Count (150-400) K/uL MPV (7.40-12.00) fL Add Manual Diff Neutrophils % (Manual) (48.0-80.0) % Lymphocytes % (Manual) (16.0-40.0) % Monocytes % (Manual) (0.0-15.0) % Nucleated RBC % /100WBC Absolute Seg Neuts (1.4-5.7) Lymphocytes # (Manual) (0.6-2.4) Monocytes # (Manual) (0.0-0.8) Nucleated RBCs # K/uL Sodium 138 (136-145) mmol/L Potassium 4.0 (3.5-5.1) mmol/L Chloride 100 (98-107) mmol/L Carbon Dioxide 26.5 (21.0-32.0) mmol/L BUN 12 (7.0-18.0) mg/dL Creatinine 0.8 (0.6-1.0) mg/dL Est Cr Clr Drug Dosing 92.76 mL/min Estimated GFR (MDRD) > 60.0 ml/min Glucose 81 (74-106) mg/dL Calcium 9.2 (8.5-10.1) mg/dL Total Bilirubin 0.3 (0.2-1.0) mg/dL AST 18 (15-37) IU/L ALT 22 (14-63) IU/L Alkaline Phosphatase 71 (46-116) U/L Total Protein 8.8 H (6.4-8.2) g/dL Albumin 3.9 (3.4-5.0) g/dL Globulin 4.9 H (2.6-4.0) g/dL Albumin/Globulin Ratio 0.8 L (0.9-1.6) Lipase 186 (73-393) U/L CA 125 Antigen 452.5 H (0.0-35.0) U/ML Urine Color Urine Appearance Urine pH (5.0-8.0) Ur Specific [place] (1.001-1.035) Urine Protein (NEGATIVE) mg/dL Urine Glucose (UA) (NEGATIVE) mg/dL Urine Ketones (NEGATIVE) mg/dL Urine Occult Blood (NEGATIVE) Urine Nitrite (NEGATIVE) Urine Bilirubin (NEGATIVE) Urine Urobilinogen (<2.0) EU/dL Ur Leukocyte Esterase (NEGATIVE) Urine HCG, Qual (NEGATIVE) Jackelyn species DNA NEGATIVE (NEGATIVE) Gardnerella DNA Probe POSITIVE H (NEGATIVE) Trichomonas DNA Probe NEGATIVE (NEGATIVE) 03/02/19 Range/Units 06:15 WBC 6.62 (4.0-11.0) K/uL RBC 3.75 L (4.30-5.90) M/uL Hgb 11.8 L (12.0-16.0) g/dL Hct 36.3 (36.0-46.0) % MCV 96.8 (80.0-98.0) fL MCH 31.5 (27.0-32.0) pg MCHC 32.5 (31.0-37.0) g/dL RDW Std Deviation 46.7 (28.0-62.0) fl RDW Coeff of Efraín 13 (11.0-15.0) % Plt Count 246 (150-400) K/uL MPV 10.00 (7.40-12.00) fL Add Manual Diff YES Neutrophils % (Manual) 60 (48.0-80.0) % Lymphocytes % (Manual) 30 (16.0-40.0) % Monocytes % (Manual) 10 (0.0-15.0) % Nucleated RBC % 0.0 /100WBC Absolute Seg Neuts 4.0 (1.4-5.7) Lymphocytes # (Manual) 2.0 (0.6-2.4) Monocytes # (Manual) 0.7 (0.0-0.8) Nucleated RBCs # 0 K/uL Sodium (136-145) mmol/L Potassium (3.5-5.1) mmol/L Chloride (98-107) mmol/L Carbon Dioxide (21.0-32.0) mmol/L BUN (7.0-18.0) mg/dL Creatinine (0.6-1.0) mg/dL Est Cr Clr Drug Dosing mL/min Estimated GFR (MDRD) ml/min Glucose (74-106) mg/dL Calcium (8.5-10.1) mg/dL Total Bilirubin (0.2-1.0) mg/dL AST (15-37) IU/L ALT (14-63) IU/L Alkaline Phosphatase (46-116) U/L Total Protein (6.4-8.2) g/dL Albumin (3.4-5.0) g/dL Globulin (2.6-4.0) g/dL Albumin/Globulin Ratio (0.9-1.6) Lipase (73-393) U/L CA 125 Antigen (0.0-35.0) U/ML Urine Color Urine Appearance Urine pH (5.0-8.0) Ur Specific [place] (1.001-1.035) Urine Protein (NEGATIVE) mg/dL Urine Glucose (UA) (NEGATIVE) mg/dL Urine Ketones (NEGATIVE) mg/dL Urine Occult Blood (NEGATIVE) Urine Nitrite (NEGATIVE) Urine Bilirubin (NEGATIVE) Urine Urobilinogen (<2.0) EU/dL Ur Leukocyte Esterase (NEGATIVE) Urine HCG, Qual (NEGATIVE) Jackelyn species DNA (NEGATIVE) Gardnerella DNA Probe (NEGATIVE) Trichomonas DNA Probe (NEGATIVE) Result Diagrams: 03/02/19 06:15 03/01/19 19:24 Sepsis Event Note - Evaluation Sepsis Screening Result: No Definite Risk - Focused Exam Vital Signs: Vital Signs Temp Pulse Resp BP Pulse Ox Pulse Ox 03/02/19 11:00 98.6 F 71 20 139/96 H 98 03/02/19 07:33 98.1 F 67 17 116/72 98 03/02/19 02:00 97.9 F 81 16 131/81 95 95 Date Exam was Performed: 03/02/19 Time Exam was Performed: 17:01 Problem List Initiated/Reviewed/Updated: Yes Orders Last 24hrs: Active Orders 24 hr Category Date Time Status Patient Status [ADT] Stat ADT 03/02/19 00:33 Active Ambulate [RC] ASDIRECTED Care 03/02/19 00:50 Active Antiembolic Devices [RC] PER UNIT ROUTINE Care 03/02/19 00:51 Active Notify Provider Consults [RC] ASDIRECTED Care 03/02/19 00:58 Active Oxygen Therapy [RC] PRN Care 03/02/19 00:50 Active VTE/DVT Education [RC] PER UNIT ROUTINE Care 03/02/19 00:50 Active Vital Signs [RC] Q4H Care 03/02/19 00:50 Active Consult to Physician [CONS] Stat Cons 03/02/19 00:56 Active Regular Diet [DIET] Diet 03/02/19 Breakfast Active CHLAMYDIA AND GONORRHEA BY TMA Stat Lab 03/01/19 22:08 Received CULTURE GENITAL [RM] Stat Lab 03/01/19 22:05 Received HYDROmorphone [Dilaudid] Med 03/02/19 00:52 Active 1 mg IVPUSH Q3H PRN Morphine Med 03/02/19 01:00 Active 2 mg IVPUSH Q4H PRN Ondansetron [Zofran] Med 03/02/19 07:49 Active 4 mg IVPUSH Q4H PRN metroNIDAZOLE Med 03/02/19 09:00 Active 500 mg PO Q12HR Sequential Compression Device [OM.PC] Per Unit Routine Oth 03/02/19 00:50 Ordered Medication Orders Hydromorphone HCl (Dilaudid) 1 mg IVPUSH Q3H PRN PRN Reason: Pain (severe 7-10) Last Admin: 03/02/19 12:15 Dose: 1 mg Admin: 03/02/19 05:37 Dose: 1 mg Metronidazole (Metronidazole) 500 mg PO Q12HR DEN Last Admin: 03/02/19 08:24 Dose: 500 mg Morphine Sulfate (Morphine) 2 mg IVPUSH Q4H PRN PRN Reason: Pain (moderate 4-6) Last Admin: 03/02/19 08:13 Dose: 2 mg Ondansetron HCl (Zofran) 4 mg IVPUSH Q4H PRN PRN Reason: Nausea Last Admin: 03/02/19 08:11 Dose: 4 mg Assessment/Plan Comment:: Assessment: RLQ pain and tenderness in the setting of 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 news of possible neoplastic nature of mass. Dr Almaraz of [employer] consulted via ED; spoke to patient and advised for outpatient follow up; [place] pain meds given and appointment made Work note provided pt. stable at discharge.
--- NOTE | 2019-03-02 15:43 | PCM.PN ---
- General Info Date of Service: 03/02/19 Subjective Update: Bedside: pt. not endorsing any pain, minimal nausea. no other issues . passing flatus Functional Status: Reports: Pain Controlled - Review of Systems General: Denies: Fever, Weakness, Malaise, Chills HEENT: Reports: No Symptoms Pulmonary: Reports: No Symptoms Cardiovascular: Reports: No Symptoms Gastrointestinal: Reports: No Symptoms, Nausea. Denies: Constipation, Diarrhea Genitourinary: Reports: No Symptoms Musculoskeletal: Reports: No Symptoms Neurological: Reports: No Symptoms Psychiatric: Reports: No Symptoms - Patient Data Vitals - Most Recent: Last Vital Signs Temp 98.6 F 03/02/19 11:00 Pulse 71 03/02/19 11:00 Resp 20 03/02/19 11:00 BP 139/96 H 03/02/19 11:00 Pulse Ox 98 03/02/19 11:00 Weight - Most Recent: 160 lb 14.999 oz Lab Results Last 24 Hours: Laboratory Results - last 24 hr 03/01/19 03/01/19 03/01/19 Range/Units 18:01 18:34 19:24 WBC 7.94 (4.0-11.0) K/uL RBC 4.43 (4.30-5.90) M/uL Hgb 14.4 (12.0-16.0) g/dL Hct 43.2 (36.0-46.0) % MCV 97.5 (80.0-98.0) fL MCH 32.5 H (27.0-32.0) pg MCHC 33.3 (31.0-37.0) g/dL RDW Std Deviation 47.9 (28.0-62.0) fl RDW Coeff of Efraín 13 (11.0-15.0) % Plt Count 258 (150-400) K/uL MPV 10.30 (7.40-12.00) fL Add Manual Diff YES Neutrophils % (Manual) 69 (48.0-80.0) % Lymphocytes % (Manual) 27 (16.0-40.0) % Monocytes % (Manual) 4 (0.0-15.0) % Nucleated RBC % 0.0 /100WBC Absolute Seg Neuts 5.5 (1.4-5.7) Lymphocytes # (Manual) 2.1 (0.6-2.4) Monocytes # (Manual) 0.3 (0.0-0.8) Nucleated RBCs # 0 K/uL Sodium (136-145) mmol/L Potassium (3.5-5.1) mmol/L Chloride (98-107) mmol/L Carbon Dioxide (21.0-32.0) mmol/L BUN (7.0-18.0) mg/dL Creatinine (0.6-1.0) mg/dL Est Cr Clr Drug Dosing mL/min Estimated GFR (MDRD) ml/min Glucose (74-106) mg/dL Calcium (8.5-10.1) mg/dL Total Bilirubin (0.2-1.0) mg/dL AST (15-37) IU/L ALT (14-63) IU/L Alkaline Phosphatase (46-116) U/L Total Protein (6.4-8.2) g/dL Albumin (3.4-5.0) g/dL Globulin (2.6-4.0) g/dL Albumin/Globulin Ratio (0.9-1.6) Lipase (73-393) U/L CA 125 Antigen (0.0-35.0) U/ML Urine Color YELLOW Urine Appearance HAZY Urine pH 8.0 (5.0-8.0) Ur Specific [place] 1.020 (1.001-1.035) Urine Protein NEGATIVE (NEGATIVE) mg/dL Urine Glucose (UA) NEGATIVE (NEGATIVE) mg/dL Urine Ketones NEGATIVE (NEGATIVE) mg/dL Urine Occult Blood NEGATIVE (NEGATIVE) Urine Nitrite NEGATIVE (NEGATIVE) Urine Bilirubin NEGATIVE (NEGATIVE) Urine Urobilinogen 1.0 (<2.0) EU/dL Ur Leukocyte Esterase NEGATIVE (NEGATIVE) Urine HCG, Qual NEGATIVE (NEGATIVE) Jackelyn species DNA (NEGATIVE) Gardnerella DNA Probe (NEGATIVE) Trichomonas DNA Probe (NEGATIVE) 03/01/19 03/01/19 03/01/19 Range/Units 19:24 19:24 22:05 WBC (4.0-11.0) K/uL RBC (4.30-5.90) M/uL Hgb (12.0-16.0) g/dL Hct (36.0-46.0) % MCV (80.0-98.0) fL MCH (27.0-32.0) pg MCHC (31.0-37.0) g/dL RDW Std Deviation (28.0-62.0) fl RDW Coeff of Efraín (11.0-15.0) % Plt Count (150-400) K/uL MPV (7.40-12.00) fL Add Manual Diff Neutrophils % (Manual) (48.0-80.0) % Lymphocytes % (Manual) (16.0-40.0) % Monocytes % (Manual) (0.0-15.0) % Nucleated RBC % /100WBC Absolute Seg Neuts (1.4-5.7) Lymphocytes # (Manual) (0.6-2.4) Monocytes # (Manual) (0.0-0.8) Nucleated RBCs # K/uL Sodium 138 (136-145) mmol/L Potassium 4.0 (3.5-5.1) mmol/L Chloride 100 (98-107) mmol/L Carbon Dioxide 26.5 (21.0-32.0) mmol/L BUN 12 (7.0-18.0) mg/dL Creatinine 0.8 (0.6-1.0) mg/dL Est Cr Clr Drug Dosing 92.76 mL/min Estimated GFR (MDRD) > 60.0 ml/min Glucose 81 (74-106) mg/dL Calcium 9.2 (8.5-10.1) mg/dL Total Bilirubin 0.3 (0.2-1.0) mg/dL AST 18 (15-37) IU/L ALT 22 (14-63) IU/L Alkaline Phosphatase 71 (46-116) U/L Total Protein 8.8 H (6.4-8.2) g/dL Albumin 3.9 (3.4-5.0) g/dL Globulin 4.9 H (2.6-4.0) g/dL Albumin/Globulin Ratio 0.8 L (0.9-1.6) Lipase 186 (73-393) U/L CA 125 Antigen 452.5 H (0.0-35.0) U/ML Urine Color Urine Appearance Urine pH (5.0-8.0) Ur Specific [place] (1.001-1.035) Urine Protein (NEGATIVE) mg/dL Urine Glucose (UA) (NEGATIVE) mg/dL Urine Ketones (NEGATIVE) mg/dL Urine Occult Blood (NEGATIVE) Urine Nitrite (NEGATIVE) Urine Bilirubin (NEGATIVE) Urine Urobilinogen (<2.0) EU/dL Ur Leukocyte Esterase (NEGATIVE) Urine HCG, Qual (NEGATIVE) Jackelyn species DNA NEGATIVE (NEGATIVE) Gardnerella DNA Probe POSITIVE H (NEGATIVE) Trichomonas DNA Probe NEGATIVE (NEGATIVE) 03/02/19 Range/Units 06:15 WBC 6.62 (4.0-11.0) K/uL RBC 3.75 L (4.30-5.90) M/uL Hgb 11.8 L (12.0-16.0) g/dL Hct 36.3 (36.0-46.0) % MCV 96.8 (80.0-98.0) fL MCH 31.5 (27.0-32.0) pg MCHC 32.5 (31.0-37.0) g/dL RDW Std Deviation 46.7 (28.0-62.0) fl RDW Coeff of Efraín 13 (11.0-15.0) % Plt Count 246 (150-400) K/uL MPV 10.00 (7.40-12.00) fL Add Manual Diff YES Neutrophils % (Manual) 60 (48.0-80.0) % Lymphocytes % (Manual) 30 (16.0-40.0) % Monocytes % (Manual) 10 (0.0-15.0) % Nucleated RBC % 0.0 /100WBC Absolute Seg Neuts 4.0 (1.4-5.7) Lymphocytes # (Manual) 2.0 (0.6-2.4) Monocytes # (Manual) 0.7 (0.0-0.8) Nucleated RBCs # 0 K/uL Sodium (136-145) mmol/L Potassium (3.5-5.1) mmol/L Chloride (98-107) mmol/L Carbon Dioxide (21.0-32.0) mmol/L BUN (7.0-18.0) mg/dL Creatinine (0.6-1.0) mg/dL Est Cr Clr Drug Dosing mL/min Estimated GFR (MDRD) ml/min Glucose (74-106) mg/dL Calcium (8.5-10.1) mg/dL Total Bilirubin (0.2-1.0) mg/dL AST (15-37) IU/L ALT (14-63) IU/L Alkaline Phosphatase (46-116) U/L Total Protein (6.4-8.2) g/dL Albumin (3.4-5.0) g/dL Globulin (2.6-4.0) g/dL Albumin/Globulin Ratio (0.9-1.6) Lipase (73-393) U/L CA 125 Antigen (0.0-35.0) U/ML Urine Color Urine Appearance Urine pH (5.0-8.0) Ur Specific [place] (1.001-1.035) Urine Protein (NEGATIVE) mg/dL Urine Glucose (UA) (NEGATIVE) mg/dL Urine Ketones (NEGATIVE) mg/dL Urine Occult Blood (NEGATIVE) Urine Nitrite (NEGATIVE) Urine Bilirubin (NEGATIVE) Urine Urobilinogen (<2.0) EU/dL Ur Leukocyte Esterase (NEGATIVE) Urine HCG, Qual (NEGATIVE) Jackelyn species DNA (NEGATIVE) Gardnerella DNA Probe (NEGATIVE) Trichomonas DNA Probe (NEGATIVE) Med Orders - Current: Current Medications Hydromorphone HCl (Dilaudid) 1 mg IVPUSH Q3H PRN PRN Reason: Pain (severe 7-10) Last Admin: 03/02/19 12:15 Dose: 1 mg Metronidazole (Metronidazole) 500 mg PO Q12HR DEN Last Admin: 03/02/19 08:24 Dose: 500 mg Morphine Sulfate (Morphine) 2 mg IVPUSH Q4H PRN PRN Reason: Pain (moderate 4-6) Last Admin: 03/02/19 08:13 Dose: 2 mg Ondansetron HCl (Zofran) 4 mg IVPUSH Q4H PRN PRN Reason: Nausea Last Admin: 03/02/19 08:11 Dose: 4 mg Discontinued Medications Hydromorphone HCl (Dilaudid) 0.5 - 1 mg IVPUSH Q1H PRN PRN Reason: Pain Last Admin: 03/02/19 00:46 Dose: 1 mg Hydromorphone HCl (Dilaudid) Confirm Administered Dose 1 mg .ROUTE .STK-MED ONE Stop: 03/01/19 23:48 Last Admin: 03/02/19 07:46 Dose: Not Given Sodium Chloride (Normal Saline) 1,000 mls @ 999 mls/hr IV BOLUS ONE Stop: 03/01/19 20:03 Last Admin: 03/01/19 19:22 Dose: 999 mls/hr Iopamidol (Isovue-370 (76%)) 100 ml IVPUSH ONETIME STA Stop: 03/01/19 19:57 Last Admin: 03/01/19 20:10 Dose: 100 ml Ketorolac Tromethamine (Toradol) 30 mg IVPUSH ONETIME ONE Stop: 03/01/19 19:04 Last Admin: 03/01/19 19:22 Dose: 30 mg Lorazepam (Ativan) 1 mg PO ONETIME ONE Stop: 03/02/19 13:05 Last Admin: 03/02/19 13:41 Dose: 1 mg Metronidazole (Metronidazole) 500 mg PO ONETIME ONE Stop: 03/02/19 00:33 Last Admin: 03/02/19 00:46 Dose: 500 mg Morphine Sulfate (Morphine) 2 mg IVPUSH ONETIME ONE Stop: 03/01/19 20:48 Last Admin: 03/01/19 20:54 Dose: 2 mg Ondansetron HCl (Zofran) 4 mg IVPUSH ONETIME ONE Stop: 03/01/19 19:04 Last Admin: 03/01/19 19:22 Dose: 4 mg Trazodone HCl (Trazodone) 25 mg PO ONETIME ONE Stop: 03/02/19 02:19 Last Admin: 03/02/19 02:38 Dose: 25 mg Trazodone HCl (Trazodone) Confirm Administered Dose 50 mg .ROUTE .STK-MED ONE Stop: 03/02/19 02:27 Last Admin: 03/02/19 07:46 Dose: Not Given - Exam Quality Assessment: Supplemental Oxygen General: Alert, Oriented HEENT: EOMI Neck: Supple Lungs: Clear to Auscultation, Normal Respiratory Effort Cardiovascular: Regular Rate, Regular Rhythm GI/Abdominal Exam: Soft, Other (ostomy in-situ; hernia stable; no apparent issues ) Skin: Warm, Dry Neurological: No New Focal Deficit Psy/Mental Status: Alert, Normal Affect, Normal Mood Sepsis Event Note - Evaluation Sepsis Screening Result: No Definite Risk - Focused Exam Vital Signs: Vital Signs Temp Pulse Resp BP Pulse Ox 03/02/19 11:00 98.6 F 71 20 139/96 H 98 03/02/19 07:33 98.1 F 67 17 116/72 98 Date Exam was Performed: 03/02/19 Time Exam was Performed: 15:42 - Problem List Review Problem List Initiated/Reviewed/Updated: Yes - My Orders Last 24 Hours: My Active Orders 03/02/19 14:56 Ready for Discharge [RC] PER UNIT ROUTINE
== END 2019-03-02 15:30 | disposition home or self-care (01) ==
LOC: MW.ED 17:09 → MW.MS 03-02 00:33
PROVIDERS: ADMIT Student in an Organized Health Care Education/Training Program; ATTEND Student in an Organized Health Care Education/Training Program
DX: R10.31 Right lower quadrant pain (principal); N76.0 Acute vaginitis; F41.9 Anxiety disorder, unspecified; F17.210 Nicotine dependence, cigarettes, uncomplicated
CPT/HCPCS: 36415; 74177; 76830; 80053; 81003; 81025; 83690; 85025; 86304; 87070; 87480; 87491; 87510; 87591; 87660; A9270; J1170; J1885; J2270; J2405; J7030; Q9967

== ENCOUNTER 2020-01-21 17:32 | Emergency (ER) | payer MEDICAID ==
[2020-01-21] MEDS ORDERED: Ketorolac 15 MG/ML SDV IVPUSH STA (18:08)
[2020-01-21] MEDS ORDERED: Alum Hydrox/Mag Hydrox/Simeth 15 ML, Lidocaine 2% 5 ML PO ONE ×2 (18:09)
[2020-01-21] MEDS ORDERED: Albuterol HFA 18 Gm Inhaler INH STA (18:10)
[2020-01-21] MEDS ORDERED: Dextrose 5%-Lactated Ringers 1,000 ML IV SCH (18:15)
--- NOTE | 2020-01-21 18:24 | EDM.PDOC ---
ED HPI GENERAL MEDICAL PROBLEM - General Chief Complaint: General Stated Complaint: COVID Time Seen by Provider: 01/21/20 17:58 - History of Present Illness INITIAL COMMENTS - FREE TEXT/NARRATIVE: CHIEF COMPLAINT(S): "Not feeling good." HISTORY OF PRESENT ILLNESS: This is a 34-year-old woman with a recent diagnosis of coronavirus approximately 3 days ago who comes to the emergency department with a chief complaint of "not feeling so good." The patient states throughout the weekend she has not been feeling so good. She states that she has been experiencing a headache, chills, sore throat, and mid sternal chest pain that goes into her throat which is causing her sore throat. She states that she feels very fatigued and is experiencing a nonproductive cough. She states that she feels like she needs an inhaler. She states that she does have a history of bronchitis but denies any history of asthma. She denies any recent travel or recent surgery or prior history of DVT or PE. She states that she tried Tylenol but has not had any relief with this. She states that she has been tolerating p.o. She denies any early onset CAD in her family. She denies any other symptoms REVIEW OF SYSTEMS: [Constitutional: Positive for fevers and chills. Eyes: Denies eye pain Ears, Nose, Mouth, & Throat: Positive for sore throat. Denies earache Cardiovascular: Positive for chest pain that radiates to her throat Respiratory: Positive for shortness of breath and cough. Denies wheezing Gastrointestinal: Denies Nausea, vomiting, diarrhea, hematochezia. Genitourinary: Denies hematuria Skin:Denies a rash Neurological: Positive for headache. Denies blurred vision, numbness, tingling, weakness Psychiatric: Denies depression] PAST MEDICAL HISTORY: As per history of present illness and as reviewed below otherwise noncontributory. SURGICAL HISTORY: As per history of present illness and as reviewed below otherwise noncontributory. LMP: 1 week ago SOCIAL HISTORY: As per history of present illness and as reviewed below otherwise noncontributory. FAMILY HISTORY: As per history of present illness and as reviewed below otherwise noncontributory. EXAMINATION OF ORGAN SYSTEMS/BODY AREAS: Constitutional: Blood pressure is 130/89, heart rate 92, respiratory rate 18 with an oxygen saturation 98% on room air. Temperature 35.7 General: Overall well-appearing woman who is sitting up straight on the side of the bed. Psychiatric: [Appropriate mood and affect.] Eyes: [No scleral icterus or conjunctival erythema] ENMT: Moist mucous membranes. Mild pharyngeal erythema. No exudates. Uvula is midline Cardiovascular: [Regular, rate, and rythym.] [No gallops, murmurs, or rubs.] Bilateral upper extremity pulses symmetric and intact. No peripheral edema. No JVD. Respiratory: [Lungs clear to auscultation bilaterally.][No wheezes, rales, or rhonchi.] Gastrointestinal: [Soft, non-tender, non-distended.] [Normoactive bowel sounds] Genitourinary: [No suprapubic tenderness] Musculoskeletal: [Normal range of motion.] Skin: [No lesions or abrasions.] Neurological: [Alert, GCS 15] MEDICAL DECISION MAKING AND COURSE IN THE ED WITH INTERPRETATION/REVIEW OF DIAGNOSTIC STUDIES: This is a 34-year-old woman in with a recent diagnosis of coronavirus who comes to the emergency department with what appears to be viral- like symptoms and central chest pain with sore throat for which she states come from her chest. I do believe this is secondary to reflux disease we will provide her with a GI cocktail. We will obtain a chest x-ray to evaluate for pneumonia and provide the patient with 1 L of D5 LR and Toradol for pain relief. We will also provide her with albuterol inhaler. We will reevaluate the patient for symptomatic improvement. I do not believe any other labs or imaging are indicated. The radiological images were viewed by myself along with reading the report from the radiologist. Chest x-ray does not reveal any acute cardiopulmonary process. After imaging I did reevaluate the patient and she reported symptomatic improvement. I discussed the chest x-ray results at that time. I discussed that I be providing her with a prescription for famotidine and that she needs to use Tylenol and Motrin [id number] for pain relief. She is to return to the emergency department for any new or worsening symptoms. She was amenable discharge at this time and had no further questions DISPOSITION: [The patient was discharged home in stable condition. The patient will follow up with] PCP within 1 week CONDITION: Fair PROCEDURES: [None] FINAL IMPRESSION(S)/DIAGNOSES: 1. Acute COVID-19 Two. Acute GERD Lan Ramirez M.D. 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 left falopian tube removed Social & Family History - Family History Family Medical History: No Pertinent Family History - Tobacco Use Tobacco Use Status *Q: Current Every Day Tobacco User Years of Tobacco use: 20 Packs/Tins Daily: 1 - Caffeine Use Caffeine Use: Reports: Soda - Recreational Drug Use Recreational Drug Use: Yes Recreational Drug Type: Reports: Marijuana/Hashish ED ROS GENERAL - Review of Systems Review Of Systems: See Below ED EXAM, GENERAL - Physical Exam Exam: See Below Course - Vital Signs Last Recorded V/S: Last Vital Signs Temp 35.7 C L 01/21/20 17:41 Pulse 92 01/21/20 17:41 Resp 18 01/21/20 17:41 BP 130/89 01/21/20 17:41 Pulse Ox 98 01/21/20 17:41 - Orders/Labs/Meds Orders: Active Orders 24 hr Category Date Time Status RT Post Treatment Assessment [RC] Click to Edit Care 01/21/20 18:11 Active RT Pre-Treatment Assessment [RC] Click to Edit Care 01/21/20 18:11 Active Dextrose 5%-Lactated Ringers 1,000 ml Med 01/21/20 18:15 Active IV ASDIRECTED Medication Orders Dextrose/Lactated Ringer's (Dextrose 5%-Lactated Ringers) 1,000 mls @ 999 mls/hr IV ASDIRECTED DEN Last Admin: 01/21/20 18:37 Dose: 999 mls/hr Documented by: COURTNEY Meds: Medications Generic Name Dose Route Start Last Admin Trade Name Freq PRN Reason Stop Dose Admin Dextrose/Lactated Ringer's 1,000 mls @ 999 mls/hr 01/21/20 18:15 01/21/20 18:37 Dextrose 5%-Lactated Ringers IV 999 mls/hr ASDIRECTED DEN Administration Discontinued Medications Generic Name Dose Route Start Last Admin Trade Name Ferozq PRN Reason Stop Dose Admin Albuterol 2 gm 01/21/20 18:10 01/21/20 18:46 Ventolin Hfa INH 01/21/20 18:11 1 puff ONETIME STA Administration Al Hydroxide/Mg Hydroxide 15 0 ml 01/21/20 18:09 01/21/20 18:36 ml/ Lidocaine HCl 5 ml PO 01/21/20 18:10 1 each ONETIME ONE Administration Ketorolac Tromethamine 15 mg 01/21/20 18:08 01/21/20 18:34 Toradol IVPUSH 01/21/20 18:09 15 mg ONETIME STA Administration Departure - Departure Time of Disposition: 19:08 Disposition: Home, Self-Care 01 Condition: Fair Clinical Impression: Atypical chest pain - Discharge Information *PRESCRIPTION DRUG MONITORING PROGRAM REVIEWED*: No *COPY OF PRESCRIPTION DRUG MONITORING REPORT IN PATIENT JAZZMINE: No Prescriptions: Famotidine [Acid-Pep] 20 mg PO DAILY #30 tablet Instructions: Nonspecific Chest Pain, Adult, [id number] Referrals: PCP,None [Primary Care Provider] - Forms: ED Department Discharge Additional Instructions: The patient is informed of any results of their evaluation and diagnostic workup and all questions are answered. They are given discharge instructions and return precautions. The patient is stable for discharge. The patient states they understand and agree with the plan and that they will return if their symptoms get worse or if they have any new concerns. The following information is given to patients seen in the emergency department who are being discharged to home. This information is to outline your options for follow-up care. We provide all patients seen in our emergency department with a follow-up referral. The need for follow-up, as well as the timing and circumstances, are variable depending upon the specifics of your emergency department visit. If you don't have a primary care physician on staff, we will provide you with a referral. We always advise you to contact your personal physician following an emergency department visit to inform them of the circumstance of the visit and for follow-up with them and/or the need for any referrals to a consulting specialist. The emergency department will also refer you to a specialist when appropriate. This referral assures that you have the opportunity for follow-up care with a specialist. All of these measure are taken in an effort to provide you with optimal care, which includes your follow-up. Under all circumstances we always encourage you to contact your private physician who remains a resource for coordinating your care. When calling for follow-up care, please make the office aware that this follow-up is from your recent emergency room visit. If for any reason you are refused follow-up, please contact the [facility] Emergency Department at and asked to speak to the emergency department charge nurse. Today your evaluated on an emergency basis. Please continue to use Tylenol and Motrin for pain relief. I will prescribe you with famotidine for the reflux. Please follow-up with your primary care physician as needed. Return to the emergency department for any new or worsening symptoms. [facility] [address] [place] [address] [place] [address] Sepsis Event Note (ED) - Evaluation Sepsis Screening Result: No Definite Risk - Focused Exam Vital Signs: Vital Signs Temp Pulse Resp BP Pulse Ox 01/21/20 17:41 35.7 C L 92 18 130/89 98 - My Orders Last 24 Hours: My Active Orders 01/21/20 18:11 RT Post Treatment Assessment [RC] Click to Edit RT Pre-Treatment Assessment [RC] Click to Edit 01/21/20 18:15 Dextrose 5%-Lactated Ringers 1,000 ml IV ASDIRECTED - Assessment/Plan Last 24 Hours: My Active Orders 01/21/20 18:11 RT Post Treatment Assessment [RC] Click to Edit RT Pre-Treatment Assessment [RC] Click to Edit 01/21/20 18:15 Dextrose 5%-Lactated Ringers 1,000 ml IV ASDIRECTED
--- NOTE | 2020-01-21 19:00 | CR ---
INDICATION: Cough TECHNIQUE: Portable upright AP view of the chest COMPARISON: None FINDINGS: The lungs are clear. There is no sizable pleural effusion or pneumothorax. The cardiomediastinal silhouette is normal. The visualized osseous structures are unremarkable. IMPRESSION: No acute intrathoracic process. Dictated by Maral Cook MD @ Jan 21 2020 6:58PM Signed by Dr. Maral Cook @ Jan 21 2020 6:59PM
== END 2020-01-21 19:35 | disposition home or self-care (01) ==
LOC: MW.ED 17:32
DX: U07.1 COVID-19 (principal); K21.9 Gastro-esophageal reflux disease without esophagitis; F41.9 Anxiety disorder, unspecified; F17.210 Nicotine dependence, cigarettes, uncomplicated; Z79.899 Other long term (current) drug therapy
CPT/HCPCS: 71045; 96374; 99285; A9270; J1885; J7121; 99283; J3535-GY

== ENCOUNTER 2020-12-29 12:18 | Emergency (ER) | payer MEDICAID ==
--- NOTE | 2020-12-29 14:26 | EDM.PDOC ---
ED HPI GENERAL MEDICAL PROBLEM - General Chief Complaint: Respiratory Problem Stated Complaint: COVID Time Seen by Provider: 12/29/20 14:14 Source of Information: Reports: Patient History Limitations: Reports: No Limitations - History of Present Illness INITIAL COMMENTS - FREE TEXT/NARRATIVE: Presents reporting that she "I am not sick, maybe just a little sick" she states she has had bronchitis before and thinks she has "a little bronchitis". She states she has had bronchitis a number of times previously. She has no fever, only a "mild cough". She states she drank a whole bottle of Mucinex and it only "produced a little phlegm". Is a [id number] smoking history and currently smokes. He is otherwise healthy without chronic medical problems. She has had a tubal ligation. No fever, breathing problems, sore throat, headache, ear or facial fullness. 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 left falopian tube removed Social & Family History - Family History Family Medical History: No Pertinent Family History - Tobacco Use Second Hand Smoke Exposure: No - Caffeine Use Caffeine Use: Reports: None - Recreational Drug Use Recreational Drug Use: No ED ROS GENERAL - Review of Systems Review Of Systems: Comprehensive ROS is negative, except as noted in HPI. ED EXAM, GENERAL - Physical Exam Exam: See Below Exam Limited By: No Limitations General Appearance: Alert, No Apparent Distress Ears: Normal External Exam, Normal TMs Nose: Normal Inspection Throat/Mouth: Normal Inspection, Normal Oropharynx Head: Atraumatic, Normocephalic Neck: Normal Inspection Respiratory/Chest: No Respiratory Distress, Lungs Clear, Normal Breath Sounds Cardiovascular: Normal Peripheral Pulses, Regular Rate, Rhythm Back Exam: Normal Inspection Extremities: Normal Inspection Neurological: Alert, Oriented Psychiatric: Normal Affect, Normal Mood Skin Exam: Warm, Dry, Intact, Normal Color, No Rash Lymphatic: No Adenopathy Course - Vital Signs Last Recorded V/S: Last Vital Signs Temp 35.9 C L 12/29/20 13:20 Pulse 71 12/29/20 13:20 Resp 20 12/29/20 13:20 BP 138/83 12/29/20 13:20 Pulse Ox 98 12/29/20 13:20 Departure - Departure Time of Disposition: 14:25 Disposition: Home, Self-Care 01 Condition: Good Clinical Impression: Bronchitis - Discharge Information Prescriptions: predniSONE [Prednisone] 2 tab PO DAILY #10 tablet Referrals: PCP,None [Primary Care Provider] - [facility] [Outside] Additional Instructions: The following information is given to patients seen in the emergency department who are being discharged to home. This information is to outline your options for follow-up care. We provide all patients seen in our emergency department with a follow-up referral. The need for follow-up, as well as the timing and circumstances, are variable depending upon the specifics of your emergency department visit. If you don't have a primary care physician on staff, we will provide you with a referral. We always advise you to contact your personal physician following an emergency department visit to inform them of the circumstance of the visit and for follow-up with them and/or the need for any referrals to a consulting specialist. The emergency department will also refer you to a specialist when appropriate. This referral assures that you have the opportunity for follow-up care with a specialist. All of these measure are taken in an effort to provide you with optimal care, which includes your follow-up. Under all circumstances we always encourage you to contact your private physician who remains a resource for coordinating your care. When calling for fo llow-up care, please make the office aware that this follow-up is from your recent emergency room visit. If for any reason you are refused follow-up, please contact the [facility] Emergency Department at and asked to speak to the emergency department charge nurse. 1. Stop smoking 2. Prednisone 20 mg, 2 tabs daily for the next 3 to 5 days. 3. Plenty of oral fluids 4. Return for breathing problems, vomiting and not keeping down oral fluids, fevers Sepsis Event Note (ED) - Evaluation Sepsis Screening Result: No Definite Risk - Focused Exam Vital Signs: Vital Signs Temp Pulse Resp BP Pulse Ox 12/29/20 13:20 35.9 C L 71 20 138/83 98
== END 2020-12-29 14:45 | disposition home or self-care (01) ==
LOC: MW.ED 12:18
DX: J40 Bronchitis, not specified as acute or chronic (principal)
CPT/HCPCS: 99283